=== PATIENT | male | born 1980 | race Caucasian/White ===

== ENCOUNTER 2020-03-12 08:49 | Emergency (ER) | payer OTHER, SELFPAY ==
[2020-03-12 09:12] VITALS: BP 133/70; BP 150/90; PULSE 117; PULSE 85; RESP 16; TEMP 37.1; O2SAT 100; BMI 26.5
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
--- NOTE | 2020-03-12 09:27 | PC.NURSE ---
SEEN BY DR KEATING. PLAN IS FOR CT ONLY. REMAINS WITH GOOD DISTAL NEUROS AFTER MD REMOVED C-COLLAR
[2020-03-12] MEDS: diazePAM 5 MG TABLET PO (09:46)
--- NOTE | 2020-03-12 10:52 | PC.NURSE ---
INTRODUCED SELF TO PT. AWAITING CT RESULTS, PT AWARE. RESTING COMFORTABLY IN STRETCHER AT THIS TIME, IN NAD.
[2020-03-12 11:32] VITALS: BP 113/65; PULSE 70; RESP 16; O2SAT 99
== END 2020-03-12 12:05 | disposition home or self-care (01) ==
PROVIDERS: Emergency Provider Emergency Medicine
DX: S13.4XXA Sprain of ligaments of cervical spine, initial encounter (principal); M54.2 Cervicalgia; M54.5 Low back pain; V43.52XA Car driver injured in collision with other type car in traffic accident, initial encounter; Y93.9 Activity, unspecified; Y92.410 Unspecified street and highway as the place of occurrence of the external cause; F17.200 Nicotine dependence, unspecified, uncomplicated; Z71.6 Tobacco abuse counseling; Z79.899 Other long term (current) drug therapy
CPT/HCPCS: 72125; 99284

== ENCOUNTER 2021-12-13 08:31 | Emergency (ER) | payer MEDICARE, MEDICAID, SELFPAY ==
[2021-12-13 09:09] VITALS: BP 138/89; PULSE 85; RESP 18; TEMP 36.6; O2SAT 98; BMI 26.5
[2021-12-13 09:35] LABS: MANUAL DIFF FLAG NO
[2021-12-13 09:36] LABS: Basophils Absolute Auto 0.1 X10*3/uL (0.0-0.2); Basophils Percent Auto 0.5 % (0-2); Eosinophils Percent Auto 0.2 % (0-4); Hematocrit 41.8 % (42.0-52.0); Hemoglobin 14.4 g/dl (14.0-18.0); Imm Gran Abs Auto 0.02 X10*3/uL (0.00-0.03); Imm Gran Pct Auto 0.2 % (0.0-0.4); Lymphocytes Absolute Auto 1.5 X10*3/uL (1.2-4.9); Lymphocytes Percent Auto 16.1 % (20-40); Mean Corpuscular HGB Conc 34.4 g/dl (31.0-36.0); Mean Corpuscular Hemoglobin 31.7 pg (27.0-33.0); Mean Corpuscular Volume 92.1 fL (80.0-98.0); Mean Platelet Volume 10.1 fL (9.4-12.4); Monocytes Absolute Auto 0.4 X10*3/uL (0.1-1.2); Monocytes Percent Auto 4.6 % (2-11); Neutrophils Absolute Auto 7.3 x10*3/uL (2.0-8.3); Neutrophils Percent Auto 78.4 % (45-73); Platelet Count 222 X10*3/uL (160-400); Red Blood Count 4.54 X10*6/uL (4.60-5.80); Red Cell Distribution Width 12.8 % (11.0-16.0); White Blood Count 9.3 X10*3/uL (4.8-10.8)
[2021-12-13 09:37] LABS: Appearance Urine CLEAR; Color Urine YELLOW; Glucose Urine UA NEG (NEG); Leukocyte Esterase Urine NEG (NEG); Nitrite Urine NEG (NEG); Specific Gravity - Urine <= 1.005 (1.005-1.025); Urine Blood NEG (NEG); Urine Ketones NEG (NEG); Urine Protein NEG (NEG-TRACE)
[2021-12-13 09:42] LABS: Prothrombin Time 11.2 SEC (10.0-13.1)
[2021-12-13 09:58] LABS: Anion Gap 12 (12-20); Blood Urea Nitrogen 13 mg/dL (9-16); Calcium 9.1 mg/dL (8.4-10.2); Carbon Dioxide 25 mmol/L (22-29); Chloride 102 mmol/L (96-108); Creatinine Clr Calc Pharmacy 116.7; Estimated Glomerular Filt Rate > 60; Glucose Random 105 mg/dL (60-115); Sodium 135 mmol/L (135-145)
== END 2021-12-13 19:26 | disposition left against medical advice (07) ==
PROVIDERS: Emergency Provider Emergency Medicine
DX: K92.1 Melena (principal); R31.9 Hematuria, unspecified; Z79.899 Other long term (current) drug therapy
CPT/HCPCS: 36415; 80048; 81003; 85025; 85610; 85730; 99282; 99283

== ENCOUNTER 2023-08-08 11:20 | Outpatient (AMB) | payer OTHER, SELFPAY ==
[2023-08-08 11:19] VITALS: BP 124/90; PULSE 87; O2SAT 98; BMI 29.0
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
[2023-08-08 11:37] VITALS: BP 108/60
== END 2023-08-08 12:01 | disposition home or self-care (01) ==
PROVIDERS: PCP Internal Medicine; Visit Provider Internal Medicine
DX: Z00.00 Encounter for general adult medical examination without abnormal findings (principal); L72.9 Follicular cyst of the skin and subcutaneous tissue, unspecified; M67.442 Ganglion, left hand; B35.6 Tinea cruris; Z72.0 Tobacco use
CPT/HCPCS: 99499

== ENCOUNTER 2023-09-02 10:23 | Outpatient (AMB) | payer MEDICARE, OTHER, SELFPAY ==
--- NOTE | 2023-09-02 10:44 | A.OFFVIS_ITS ---
Intake Vital Signs 3 09/02/23 10:56 Height 5 ft 10 in Weight 201 lb BMI 28.8 BP 128/85 Blood Pressure Location Lt brachial Position Sitting Pulse 75 Intake Visit Reasons: Follicular cyst of skin Intake Note: Patient is seen in office for evaluation and treatment of a right scrotal mass. Pt c/o: right groin lump had been I&D 2 yrs ago and came back has a hand cyst 2 yrs has increase in size, denies pain Occupational Health Technician Required: No Accompanied by: Family/Other Allergies No Known Allergies Allergy (Verified 09/02/23 10:51) Medication List - Last Reconciled 09/02/23 by Jorge L Oquendo MD No Known Home Meds HPI HPI Comments 2 History of Present Illness0 Details 43-year-old male patient presenting for evaluation of a scrotal cyst noted on the right scrotum. He has a prior history of multiple scrotal cyst removed by Dr. Luque all of which were benign. He currently denies any symptoms associated with the cyst and denies any previous history of infection. He also complains of a left ganglion cyst located in the thenar eminence. 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 He was interested in having this removed. [facility] Medical History Neck pain Surgical History Hx of appendectomy H/O bilateral inguinal hernia repair Family History Father Myocardial infarct Social History Housing: Apartment Alcohol intake: current Alcohol intake frequency: a few times a week Comment: once a week 3 beers Patient Tobacco Use Status: Current everyday Tobacco user Cigarette Packs Per Day: 1 Years Smoked: started 18 years old 8 cigarettes a day. service: No Current occupational status: employed Cognitive needs: No Hearing needs: No Vision needs: No Review of Systems Const All systems reviewed & are unremarkable except as noted in HPI and below Physical Exam Vital Signs: Last Vital Signs Pulse 75 09/02/23 10:56 BP 128/85 09/02/23 10:56 BMI result Body Mass Index 28.8 Const General: cooperative and no acute distress Nutritional Appearance: well nourished Orientation/consciousness: patient oriented x3 Limitations: no limitations HEENT Head: Yes normocephalic and Yes atraumatic Ears: hearing grossly normal bilaterally Resp Effort & Inspection: normal respiratory effort, no audible wheezes, no cough and no respiratory distress Cardio Jugular venous distension: no JVD GI Inspection: Yes normal to inspection Other: 1 cm scrotal cyst located in the upper right scrotal sac. Several small lesions are noted below this in the midline and left side. All appear benign with no evidence of skin ulceration, erythema, or tenderness to palpation. Male genitals images: 2 1. Largest cyst right scrotum, 1 cm diameter. Skin Other: Warm, dry, no rash Neuro General: patient oriented x3 Extrem General: Yes no clubbing, cyanosis or edema Hand/finger images: 2 1. Site of palpable ganglion at thenar eminence left hand Assessment & Plan Assessment & Plan (1) Ganglion cyst of tendon sheath of left hand: Comment: Left hand cyst Code(s): M67.442 - Ganglion, left hand Plan: Large ganglion cyst at the left hand thenar eminence. Cyst is located on the palmar surface and would be best treated by a hand specialist. I will refer to Dr. Alfonso for further evaluation. (2) Scrotal cyst: Comment: Right scrotal mass Code(s): L72.9 - Follicular cyst of the skin and subcutaneous tissue, unspecified Plan: Patient has multiple small scrotal cysts the largest measuring approximately 1 cm on the right side. He is previously undergone excision of 9 scrotal cyst which were benign. Reviewed the procedure, risks and alternatives for excision of this scrotal cyst. He is declined excision at this time will call should they become more symptomatic. Orders: Referrals 2 Hand Surgery Referral Jorge L Oquendo MD M67.442 - Ganglion, left hand Medications: Discontinued 2 diazepam (Valium) Discontinued Reason: Patient Completed Course 5 mg PO TID PRN 10 tabs 0RF muscle spasm VY Brown clotrimazole 1% Discontinued Reason: Patient Refused 1 appl topical BID 45 grams 1RF 4 weeks VY Brown B35.6 - Tinea cruris miconazole nitrate 2% (Zeasorb AF) Discontinued Reason: Patient Completed Course 1 appl topical DAILY 85 grams 1RF Fariba Adler, RMA B35.6 - Tinea cruris Coding Level of Care Code New Pt Level 4 (00290) Diagnoses Ganglion cyst of tendon sheath of left hand M67.442 Scrotal cyst L72.9
[2023-09-02 10:56] VITALS: BP 128/85; PULSE 75; BMI 28.8
== END 2023-09-02 11:05 | disposition home or self-care (01) ==
PROVIDERS: PCP Internal Medicine; Referring Provider Internal Medicine; Visit Provider Surgery
DX: M67.442 Ganglion, left hand (principal); L72.9 Follicular cyst of the skin and subcutaneous tissue, unspecified
CPT/HCPCS: 99204

== ENCOUNTER → 2023-09-02 10:23 | Outpatient (BNVA) | payer OTHER, SELFPAY | PROVIDERS: PCP Internal Medicine; Referring Provider Internal Medicine; Visit Provider Surgery ==

== ENCOUNTER 2023-09-21 10:19 | Outpatient (REF) | payer OTHER, SELFPAY | END 2023-09-21 10:20 | disposition home or self-care (01) | LOC: HO.HOSX 10:19 | PROVIDERS: Visit Provider Physician Assistant | DX: Z13.89 Encounter for screening for other disorder (principal) ==

== ENCOUNTER 2023-11-04 07:43 | Outpatient (REF) | payer OTHER, SELFPAY ==
--- NOTE | ~2023-11-04 | XR_ITS ---
EXAMINATION: XR HAND, LEFT CLINICAL INFORMATION: Pain in left hand. COMPARISON: None available. TECHNIQUE: PA, lateral, and oblique views of the left hand. FINDINGS: Radiopaque marker placed by technologist to indicate the area of concern as indicated by the patient between the first and second digits. Prominence of the soft tissues between the first and second metacarpal. Bone mineralization is normal. Moderate degenerative changes with hypertrophic change most notable in the fifth digit DIP joint. Mild degenerative changes with narrowing and hypertrophic change of the first carpometacarpal and metacarpophalangeal joints. XR/XR hand LT min 3V IMPRESSION: 1. Prominence of the soft tissues between the first and second metacarpal. Correlation with clinical exam recommended. 2. Moderate degenerative changes most notable in the fifth digit DIP joint. 3. Recommend follow-up imaging in 10-14 days if fracture is suspected.
== END 2023-11-04 07:44 | disposition home or self-care (01) ==
LOC: HO.HOSX 07:43
PROVIDERS: Visit Provider Physician Assistant
DX: M79.642 Pain in left hand (principal)
CPT/HCPCS: 73130

== ENCOUNTER 2023-11-04 11:37 | Outpatient (AMB) | payer OTHER, SELFPAY ==
--- NOTE | 2023-11-04 11:38 | MHC.OFFVIS ---
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 He states the mass has gotten smaller within the last month.He was seen by a general surgeon here at [facility] and was referred to orthopedics. Lump is located on the palmar surface left hand thenar eminence. Pt denies any pain. 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 He reports he noticed a noticed a lump on his hand about a year ago which has gotten smaller in size within the last month. He was seen by a general surgeon at [facility] where he was referred to our office. His lump is located at the palmar aspect of thenar eminence of left hand. He denies any pain. He has not had any treatment in the past. 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 [facility] Medical History Neck pain Surgical History Hx of appendectomy H/O bilateral inguinal hernia repair Family History Father Myocardial infarct Social History Housing: Apartment Alcohol intake: current Alcohol intake frequency: a few times a week Comment: once a week 3 beers Patient Tobacco Use Status: Current everyday Tobacco user Cigarette Packs Per Day: 1 Years Smoked: started 18 years old 8 cigarettes a day. service: No Current occupational status: employed Cognitive needs: No Hearing needs: No Vision needs: No Review of Systems Const All systems reviewed & are unremarkable except as noted in HPI and below Physical Exam Const General: cooperative, healthy appearing, comfortable, no acute distress, well developed and alert Orientation/consciousness: patient oriented x3 HEENT Head: Yes normal to inspection, Yes normocephalic and Yes atraumatic Eyes General: appearance normal, both eyes and all related structures Resp Effort & Inspection: normal respiratory effort and able to speak in complete sentences Cardio Rate: regular rate Peripheral pulses: Peripheral pulses 2+ throughout GI Palpation (GI): Soft to palpation Skin Lesions: no lesions Rashes: no rashes Neuro General: patient oriented x3 Extrem Other: Left hand: Normal to inspection. He does have a marble sized cystic structure between the space of index finger and thumb. It is mobile. There is no tenderness to palpation. NVI. Results Reviewed Results Reviewed: Xrays were obtained in the office today and personally reviewed by me of the left hand negative for bony abnormalities. Assessment & Plan Assessment & Plan (1) Mass of skin of left thumb: Code(s): R22.32 - Localized swelling, mass and lump, left upper limb Category: Medical Plan At this time with we ordered an MRI of the left hand with and without contrast to further evaluate the structures. He is content with the plan and will see me back once the scan is complete. Orders: Orders XR hand LT min 3V Today M79.642 - Pain in left hand MR hand LT wo/w con Today D17.9 - Benign lipomatous neoplasm, unspecified Patient Instructions: Scribed for Joe Garrido PA-C, by Damion Rodas pesticide use medical coordinator, on 11/04/2023 at 11:30 AM EST.? I, Joe Garrido PA-C, have personally reviewed and agree with the information entered by the scribe. Coding Level of Care Code New Pt Level 3 (61919) Diagnoses Mass of skin of left thumb R22.32
== END 2023-11-04 12:05 | disposition home or self-care (01) ==
PROVIDERS: PCP Internal Medicine; Visit Provider Physician Assistant
DX: R22.32 Localized swelling, mass and lump, left upper limb (principal)
CPT/HCPCS: 99203

== ENCOUNTER 2024-12-17 08:49 | Emergency (ER) | payer SELFPAY ==
--- NOTE | ~2024-12-17 | XR_ITS ---
EXAMINATION: XR WRIST 3 OR MORE VIEWS LEFT HISTORY: swelling and pain dorsal wrist COMPARISON: There are no prior studies available for comparison. FINDINGS: Four views of the left wrist, including a scaphoid view are submitted. Osseous mineralization is normal. There is no fracture or dislocation. The joint spaces are preserved. There is dorsal soft tissue swelling. XR/XR wrist LT min 3V IMPRESSION: Dorsal soft tissue swelling. No osseous abnormality is identified. Electronically signed by: Zac Gutierrez MD 12/17/2024 09:56 AM EDT
[2024-12-17 08:51] VITALS: BP 141/78; PULSE 75; RESP 16; TEMP 36.6; O2SAT 98; BMI 26.1
--- NOTE | 2024-12-17 09:27 | ED_ITS ---
HPI - Extremity Problem General Chief complaint: Extremity Problem Stated complaint: Left wrist swollen Time Seen by Provider: 12/17/24 09:07 Source: patient Mode of arrival: ambulatory Limitations: no limitations History of Present Illness ED Provider: Corina Rinaldi PA-C HPI Narrative: Patient reports to the emergency department today for evaluation of soft tissue mass behind his left dorsal wrist. He states he just woke up with it 1 day a week ago. It does hurt when he moves his wrist around he noticed a little bit of swelling into his hand but no skin changes. Denies any trauma or this occurring before in the past. He is right-hand dominant. He is denying any paresthesias or weakness. He reports no intervention at home. He isn't feel it gets worse with dependent position. He denies noticing any other swelling on the rest of his body. No fevers no chills. In chart review underneath patient has active problems it looks like he has a diagnosis of ganglion cyst of the tendon sheath of left hand however he declines knowledge of this. MD Complaint: extremity swelling Related Data Previous Rx's ?Medication ?Instructions ?Recorded meloxicam 15 mg tablet 15 mg PO DAILY #14 tabs 11/28 06/23 Allergies Allergy/AdvReac Type Severity Reaction Status Date / Time No Known Allergies Allergy Verified 12/17/24 08:52 Review of Systems Review of Systems: Yes all other systems are reviewed and are negative PMFSH Past Medical History Attestation statement: The following information was validated with the patient. Source: old records reviewed and nursing notes reviewed Medical History Neck pain Surgical History Hx of appendectomy H/O bilateral inguinal hernia repair Family History Family History Father Myocardial infarct Social History Social History Housing: Apartment Alcohol intake: current Alcohol intake frequency: a few times a week Comment: once a week 3 beers Patient Tobacco Use Status: Current everyday Tobacco user Cigarette Packs Per Day: 1 Years Smoked: started 18 years old 8 cigarettes a day. Advance Directives: No Advance Directives Information Provided: Yes service: No Current occupational status: employed Cognitive needs: No Hearing needs: No Vision needs: No Physical Exam Exam: Exam: General: Appears in no acute distress, appears well nourished body habitus is normal, appears stated age. No septic or ill-appearing. Vitals reviewed normal, PMH/Social and Surgical hx reviewed including allergies and current medications. - reviewed for prior visits here and not read as it does not pertain to CC. Head: Normocephalic, no obvious trauma or skin lesions noted. Eyes: EOMI ENMT: moist oral mucosa Neck: trachea midline Cardiovascular: peripheral perfusion normal, Regular heart rate regular rhythm cap refill less 3 seconds distal pulses 2+ extremities are warm and well- perfused Respiratory: no respiratory distress Abdomen: nondistended Extremities: warm, superficial soft tissue mass that is mobile in the dorsal aspect of the left wrist that is approximately 2-1/2 cm in size rounded, that is skin colored with no erythema slight nonpitting edema dorsally to the distal portion of the 2nd through 5th MCPs, patient is fully intact no bony tenderness patient is able to perform finger opposition make the okay sign the peace sign in a fully close fist check weigher strength is 4+ throughout he is only mildly tender over this dorsal soft tissue mass but otherwise no other tenderness noted wrist extension and flexion is limited only wrist extension causes pain, no erythema cuts abrasions or other skin lesions noted Psych: Cooperative Neuro: Alert and oriented. Neurovascularly intact Vital Signs: Vital Signs: Last Vital Signs Temp 98 F 12/17/24 10:32 Pulse 75 12/17/24 10:32 Resp 16 12/17/24 10:32 BP 141/78 H 12/17/24 10:32 Pulse Ox 98 12/17/24 08:51 O2 Del Method Room Air 12/17/24 10:32 BMI result Body Mass Index 26.1 Medical Decision Making Medical Decision Making MDM Narrative: Well-appearing 44-year-old male presenting to emergency department today for evaluation of left wrist swelling. History and physical as above. Upon arrival to ED patient is afebrile with reassuring vital signs. On physical exam he does have a dorsal soft tissue mass of his left wrist she looks like the appearance of a ruptured ganglion cyst but certainly no infection seems to be present. X- rays were obtained to further evaluate as he did have some decrease in range of motion. X-rays do not show any evidence of a bone dislocation or a fracture. Mass is mobile not likely cancerous. In chart review it does look like he has a prior diagnosis of a ganglion cyst in this area but patient can not recall. Empiric incision and drainage not warranted today. Discussed activity as tolerated with rice method and have given meloxicam as a long-acting anti- inflammatory for his pain relief. We did discuss that following up with Orthopedics would be the next step in management of this. I have advised against him popping it and then self as he wanted to do this. We discussed the risks of infection as well as worsening condition and reasons to seek medical attention again both urine an outpatient. Patient demonstrated verbal understanding of the plan and agreed he was discharged home stable Differential Diagnosis Differential Diagnoses: The differential diagnosis associated with the presentation includes See MDM Admission/Observation Consideration of admission/observation: Escalation of care including admission/observation considered Patient would have been admitted to the hospital had his work up had any findings where hospital admission was appropriate and his clinical presentation warranted hospital admission. Independent Interpretation I performed an independent interpretation of an: Plain X-Ray Interpretation: No fracture or dislocation Radiology Impression Discussion of test interpretation with radiology: I have reviewed the radiologist's reading. Discharge Plan Discharge Clinical Impression: Mass of left wrist Patient Disposition: Home, Self-Care Instructions: Ganglion Cyst (ED), Soft Tissue Mass (ED) Additional Instructions: You were seen in the emergency department today due to a mass behind her left posterior wrist. We discussed the potential possibilities of a ruptured ganglion cyst versus lipoma versus bony abnormality. You had x-rays done that did no show any bony abnormality fracture or dislocation. On imaging the soft tissue looks to be dorsal only. It does not appear to be infected and there is no evidence of neurovascular compromise. Is recommended that you follow up outpatient with Orthopedics for further evaluation. In the interim we will address her discomfort with meloxicam which is long-acting anti-inflammatory as well as with an Scar wrap. Do not wear the Scar wrap to bed on wrap if her fingers feel tingly. If you notice any skin changes increase in pain or size of this please have it re-evaluated immediately. Activity as tolerated. When I reviewed your chart underneath her active problem it does look like you have an identified ganglion cysts of your left hand before in the past, this has likely ruptured. Prescriptions: New meloxicam 15 mg tablet 15 mg PO DAILY Qty: 14 0RF Referrals: [facility] Orthopedic Surgeons [Provider Group] Referral Note: Dorsal soft tissue mass of left wrist questionable ruptured ganglion cyst Interventions: ED Discharge Assessment Last Done: 12/17/24 10:32 Discharge Date/Time: 12/17/24 10:33 Print Language: Sudanese
--- OUTSIDE RECORDS SUMMARY | 2024-12-17 10:04 | XMS_ITS | Clinical Summary ---
Author Organization [employer] Address [address] [place] [address] Care Team Providers Care Data Warehousing Specialist Name Role Phone Unavailable Primary Care Provider Unavailabl e Social History Tobacco Use Types Packs/Day Years Used Date Smoking Tobacco: Never Assessed Sex and Gender Information Value Date Recorded Sex Assigned at Male 03/29/2022 10:18 AM EDT Legal Sex Male 10:18 AM EDT Gender Identity Male 03/29/2022 10:18 AM EDT Sexual Orientation Straight 03/29/2022 10 :18 AM EDT Last Filed Vital Signs Vital Sign Reading Time Taken Comments Blood Pressure 121/82 12/15/2021 12:07 AM EDT Pulse 74 12/15/2021 12:07 AM EDT Temperature - - Respiratory Rate - - Oxygen Saturation - - Inhaled Oxygen Concentration - - Weight 78.5 kg (173 lb) 12/15/2021 12:07 AM EDT Height 180.3 cm (5' 11 ) 12/15/2021 12:07 AM EDT Body Mass Index 24.13 12/15/2021 12:07 AM EDT Plan of Treatment Health Maintenance Due Date Last Done Comments Depression Screening 1980 SDOH Screening 1980 Disability Screening 1980 Alcohol/Substance Use Screening 1992 Tobacco Screening 1992 Family Planning (PISQ) 02/02/1995 HPV Vaccines (1 - Male 3-dos e series) 02/02/1995 Hepatitis B Vaccines (1 of 3 - 19+ 3-dose series) 02/02/1999 COVID-19 Vaccine (4 - 2023-2 5 season) 2024 05/15/2022, 06/24/2021, 12/28/2020 Influenza Vaccine (#1) 2025 Lipid Panel 12/15/2026 12/15/2021 DTaP/Tdap/Td Vaccines (2 - T d or Tdap) 08/13/2027 08/12/2017 Zoster Vaccines (1 of 2) 02/02/2030 RSV Patients and Patients Aged 60 years or older (1 - 1-dose 75+ series) 02/02/2055 HIV Screening Completed 12/15/2021 Hepatitis C Screening Completed 12/15/2021 HIB Vaccines Aged Out No longer eligi ble based on patient's age to complete this topic Hepatitis A Vaccines Aged Out No long er eligible based on patient's age to complete this topic IPV Vaccines Aged Out No longer eligi ble based on patient's age to complete this topic Meningococcal B Vaccine Aged Out No l onger eligible based on patient's age to complete this topic Meningococcal Vaccine Aged Out No manfred mila eligible based on patient's age to complete this topic Pneumococcal Vaccine: Pediatrics (0 to 5 Years) and At-Risk Patients (6 to 49) Years Aged Out No longer eligible b ased on patient's age to complete this topic RSV under 20 months Aged Out No longe r eligible based on patient's age to complete this topic Rotavirus Vaccines Aged Out No longer eligible based on patient's age to complete this topic Procedures Procedure Name Priority Date/Time Associated Diagnosis Comments ZZZ HISTORICAL HEPATITIS C AB W/REFL TO HCV RNA, QN, PCR Routine 12/15/2021 11:19 AM EDT HIV 1/2 ANTIGEN/ANTIBODY, FOURTH GENERATION W/RFL Routine 12/15/2021 11:19 AM EDT LIPID PANEL, STANDARD Routine 12/15/2021 11:19 AM EDT from Last 3 Months or Most Recently Relevant to Health Maintenance Results * HEPATITIS C AB W/REFL TO HCV RNA, QN, PCR (12/15/2021 11:19 AM EDT) HEPATITIS C ANTIBODY NON-REACT DAPHNE NON-REACT DAPHNE [facility] INDEX 0.02 <1.00 [facility] Comment: HCV antibody was non-reactive. There is no laboratory evidence of HCV infection. In most cases, no further action is required. However, if recent HCV exposure is suspected, a test for HCV RNA (test code 05838) is suggested. For additional information please refer to [email or web address]/faq/RMV56v7 (This link is being provided for informational/ educational purposes only.) 12/15/2021 11:1 9 AM EDT Jennifer Roca FLOORING PROFESSIONAL HISTORICAL/NON ORDERABLE LABS Final Result Performing Organization Address [facility] de Phone Number [facility] [address] [place] [address], * HIV 1/2 ANTIGEN/ANTIBODY,FOURTH GENERATION W/RFL (12/15/2021 11:19 AM EDT) Pathologist [facility] HIV-1/2 ANTIGEN AND ANTIBODIES, 4TH GENERATION W/ REFLEX NON-REACT DAPHNE NON-REACT DAPHNE [facility] Comment: HIV-1 antigen and HIV-1/HIV-2 antibodies were not detected. There is no laboratory evidence of HIV infection. PLEASE NOTE: This information has been disclosed to you from records whose confidentiality may be protected by state law. If your state requires such protection, then the state law prohibits you from making any further disclosure of the information without the specific written consent of the person to whom it pertains, or as otherwise permitted by law. A general authorization for the release of medical or other information is NOT sufficient for this purpose. For additional information please refer to [email or web address]/faq/ECB500 (This link is being provided for informational/ educational purposes only.) The performance of this assay has not been clinically validated in patients less than 2 years old. 12/15/2021 11:1 9 AM EDT Jennifer Gonzalezlily FLOORING PROFESSIONAL LAB BLOOD ORDERABLES Final Res ult Performing Organization Address [facility] de Phone Number [facility] [address] [place] [address], * LIPID PANEL, STANDARD (12/15/2021 11:19 AM EDT) Chol/HDLC Ratio 2.4 <5.0 (calc) [facility] Cholesterol, Total 174 <200 mg/dL [facility] HDL Cholesterol 73 > OR = 40 mg/dL [facility] LDL Cholesterol 85 mg/dL (calc) [facility] Comment: Reference range: <100 Desirable range <100 mg/dL for primary prevention; <70 mg/dL for patients with CHD or diabetic patients with > or = 2 CHD risk factors. LDL-C is now calculated using the Robert calculation, which is a validated novel method providing better accuracy than the Friedewald equation in the estimation of LDL-C. Marcos GASPAR et al. JOSHUA. 2013;310(19): 1736-5679 (http://education.EyeSpot/faq/MOV914) Non-HDL Cholesterol 101 <130 mg/dL (calc) [facility] Comment: For patients with diabetes plus 1 major ASCVD risk factor, treating to a non-HDL-C goal of <100 mg/dL (LDL-C of <70 mg/dL) is considered a therapeutic option. Triglycerides 69 <150 mg/dL [facility] 12/15/2021 11:1 9 AM EDT us Jennifer Roca NP LAB BLOOD ORDERABLES Final Res ult [facility] [address] from Last 3 Months or Most Recently Relevant to Health Maintenance Insurance [facility] STANDARD
[2024-12-17 10:32] VITALS: BP 141/78; PULSE 75; RESP 16; TEMP 36.6
== END 2024-12-17 10:33 | disposition home or self-care (01) ==
PROVIDERS: Emergency Provider Emergency Medicine
DX: R22.32 Localized swelling, mass and lump, left upper limb (principal)
CPT/HCPCS: 73110; 99282; 99283

== ENCOUNTER → 2024-12-17 09:28 | Outpatient (BNV) | payer SELFPAY | PROVIDERS: Emergency Provider Emergency Medicine; Visit Provider Radiology Diagnostic Radiology | DX: R22.32 Localized swelling, mass and lump, left upper limb (principal) | CPT/HCPCS: 73110 ==

== ENCOUNTER 2025-01-01 09:48 | Outpatient (AMB) | payer OTHER, SELFPAY ==
[2025-01-01 09:50] VITALS: BMI 26.1
--- NOTE | 2025-01-01 09:50 | A.OFFVIS_ITS ---
Vital Signs 01/01/25 09:50 Height 5 ft 10 in Weight 182 lb BMI 26.1 Intake Visit Reasons: ED: LT wrist swelling/possibility of ganglion cyst Intake Note: Justice is a 44 year old - hand dominant male who presents today for further evaluation of swelling of the left wrist. Patient presented to [facility] ED on 12/17/24 reporting a week prior he woke up with a mass on the dorsal aspect of the wrist that was now causing pain when moving the wrist around. Patient also reported some swelling that was spreading to the hand. He was prescribed meloxicam and given an charly wrap with instructions to not wear the charly wrap to bed. Patient was previously seen on 09/02/23 where he was evaluated for a lump between his left index finger and thumb. An MRI was ordered however the patient no show the appointment. Today, patient reports pain on the dorsal aspect of the hand. Has taken the meloxicam prescribed and Tylenol, with no relief. Denies any numbness, tingling, or finger locking & catching. Allergies No Known Allergies Allergy (Verified 01/01/25 09:55) HPI HPI ED: LT wrist swelling/possibility of ganglion cyst: Details: Justice is a 44 year old - hand dominant male who presents today for further evaluation of swelling of the left wrist. Patient presented to [facility] ED on 12/17/24 reporting a week prior he woke up with a mass on the dorsal aspect of the wrist that was now causing pain when moving the wrist around. Patient also reported some swelling that was spreading to the hand. He was prescribed meloxicam and given an charly wrap with instructions to not wear the charly wrap to bed. Patient was previously seen on 09/02/23 where he was evaluated for a lump between his left index finger and thumb. An MRI was ordered however the patient no show the appointment. Today, patient reports pain on the dorsal aspect of the hand. Has taken the meloxicam prescribed and Tylenol, with no relief. Denies any numbness, tingling, or finger locking & catching. [facility] Medical History Neck pain Surgical History Hx of appendectomy H/O bilateral inguinal hernia repair Family History Father Myocardial infarct Social History Housing: Apartment Alcohol intake: current Alcohol intake frequency: a few times a week Comment: once a week 3 beers Patient Tobacco Use Status: Current everyday Tobacco user Cigarette Packs Per Day: 1 Years Smoked: started 18 years old 8 cigarettes a day. service: No Current occupational status: employed Cognitive needs: No Hearing needs: No Vision needs: No Review of Systems Const All systems reviewed & are unremarkable except as noted in HPI and below Physical Exam Vital Signs: BMI result Body Mass Index 26.1 Extrem Other: Patient is alert, oriented, and in no acute distress. Neuro: Normal sensation of the tips of all digits of the left hand at this time Vascular: Cap refill brisk Pain: Minimal tenderness to palpation about mass of dorsal left wrist Range of motion of the left wrist and hand is painless ROM: Patient is able to make a closed fist and extend all digits of the left hand fully Range of motion of the left wrist full and intact with pronation supination flexion and extension being full Skin: No lacerations or abrasions. General: There is an approximately 4-5 cm in diameter fluctuant, mobile mass noted of the dorsal aspect of the left wrist No ecchymosis, erythema, or evidence of infection. Psych: Appears grossly normal Affect normal Attitude cooperative Assessment & Plan Assessment & Plan (1) Ganglion cyst of dorsum of left wrist: Code(s): M67.432 - Ganglion, left wrist Category: Medical Plan 1. Ganglion cyst of the left wrist Patient is educated about this condition Patient is educated about the treatment options available At this time, patient states he is interested in surgical intervention, however he is unable to do so at this time due to work circumstances Patient states that in approximately January, he will be in a better place to be able to explore operative intervention Patient is booked an appointment for late January or early February to discuss left wrist ganglion cyst excision Patient understands this is amenable to this plan Coding Level of Care Code New Pt Level 3 (52966) Diagnoses Ganglion cyst of dorsum of left wrist M67.432
--- OUTSIDE RECORDS SUMMARY | 2025-01-01 10:14 | XMS_ITS | Clinical Summary ---
Author Organization [employer] Address [address] [place] [address] Care Team Providers Care Covered Button Maker Name Role Phone Unavailable Primary Care Provider [...] HEPATITIS C ANTIBODY NON-REACT DAPHNE NON-REACT DAPHNE [facility] INDEX 0.02 <1.00 [facility] Comment: HCV antibody was non-reactive. There is no laboratory evidence of HCV infection. In most cases, no further action is required. However, if recent HCV exposure is suspected, a test for HCV RNA (test code 55501) is suggested. For additional information please refer to [email or web address]/faq/PMD47c7 (This link is being provided for informational/ educational purposes only.) 12/15/2021 11:1 9 AM EDT Jennifer Roca CRAB PICKER HISTORICAL/NON ORDERABLE LABS Final Result Performing Organization Address [facility] de Phone Number [facility] [address] [place] [address], * HIV 1/2 ANTIGEN/ANTIBODY,FOURTH GENERATION W/RFL (12/15/2021 11:19 AM EDT) Pathologist [facility] HIV-1/2 ANTIGEN AND ANTIBODIES, 4TH GENERATION W/ REFLEX NON-REACT DAPHNE NON-REACT DAPHNE [facility] Comment: HIV-1 antigen and HIV-1/HIV-2 [...] purpose. For additional information please refer to http://[email or web address]/faq/MTS510 (This link is being provided for informational/ educational purposes only.) The performance of this assay has not been clinically validated in patients less than 2 years old. 12/15/2021 11:1 9 AM EDT Jennifer Gonzalezlily CRAB P[employer]ER LAB BLOOD ORDERABLES Final Res ult Performing Organization Address [facility] de Phone Number [facility] [address] [place] [address], * LIPID PANEL, STANDARD (12/15/2021 11:19 AM EDT) Chol/HDLC Ratio 2.4 <5.0 (calc) [facility] Cholesterol, Total 174 <200 mg/dL [...] LDL-C. Marcos GASPAR et al. JOSHUA. 2013;310(19): 1359-8312 (http://education.3FLOZ/faq/ADH462) Non-HDL Cholesterol 101 <130 mg/dL (calc) [facility] Comment: For patients with diabetes plus 1 major ASCVD risk factor, treating to a non-HDL-C goal of <100 mg/dL (LDL-C of <70 mg/dL) is considered a therapeutic option. Triglycerides 69 <150 mg/dL [facility] 12/15/2021 11:1 9 AM EDT us Jennifer Roca NP LAB BLOOD ORDERABLES Final Res ult [facility] [address] from Last 3 Months or Most Recently Relevant to Health Maintenance Insurance [facility] STANDARD
== END 2025-01-01 10:19 | disposition home or self-care (01) ==
LOC: HO.HOS 09:49
DX: M67.432 Ganglion, left wrist (principal)
CPT/HCPCS: 99214

== ENCOUNTER 2025-03-01 13:58 | Outpatient (AMB) | payer SELFPAY ==
--- OUTSIDE RECORDS SUMMARY | 2025-03-01 14:11 | XMS_ITS | Clinical Summary ---
Author Organization [employer] Address [address] [facility] [address] [place] [address] Care Team Providers Care Mail Sorter Name Role Phone Unavailable Primary Care Provider [...] Health Maintenance Due Date Last Done Comments CT Colonography 1980 Colonoscopy 1980 Colorectal Cancer Screening 1980 Depression Screening 1980 FIT DNA/Cologuard 1980 FIT 1980 FOBT 1980 SDOH Screening 1980 Sigmoidoscopy 1980 Disability Screening 1980 Alcohol/Substance Use Screening 1992 Tobacco Screening 1992 Family Planning (PISQ) 02/02/1995 HPV Vaccines (1 - Male 3-dos e series) 02/02/1995 Hepatitis B Vaccines (1 of 3 - 19+ 3-dose series) 02/02/1999 COVID-19 Vaccine (4 - 2025-2 6 season) 2025 05/15/2022, 06/24/2021, 12/28/2020 Influenza Vaccine (#1) 2025 [...] HEPATITIS C ANTIBODY NON-REACT DAPHNE NON-REACT DAPHNE [facility] INDEX 0.02 <1.00 [facility] Comment: HCV antibody was non-reactive. There is no laboratory evidence of HCV infection. In most cases, no further action is required. However, if recent HCV exposure is suspected, a test for HCV RNA (test code 89948) is suggested. For additional information please refer to http://VIDDIX.[employer]/faq/GMA17h6 (This link is being provided for informational/ educational purposes only.) 12/15/2021 11:1 9 AM EDT Jennifer Roca INSTRUCTIONAL SERVICES LIBRARIAN HISTORICAL/NON ORDERABLE LABS Final Result Performing Organization Address [facility] de Phone Number [facility] [address] [place] [address], * HIV 1/2 ANTIGEN/ANTIBODY,FOURTH GENERATION W/RFL (12/15/2021 11:19 AM EDT) HIV-1/2 ANTIGEN AND ANTIBODIES, 4TH GENERATION W/ REFLEX NON-REACT DAPHNE NON-REACT DAPHNE [facility] Comment: HIV-1 antigen and HIV-1/HIV-2 [...] purpose. For additional information please refer to http://VIDDIX.[employer]/faq/OJG206 (This link is being provided for informational/ educational purposes only.) The performance of this assay has not been clinically validated in patients less than 2 years old. 12/15/2021 11:1 9 AM EDT Jennifer Gonzalezlily SOTELO LAB BLOOD ORDERABLES Final Res ult Performing Organization Address [facility] Co de Phone Number [facility] [address] [place] [address], * LIPID PANEL, STANDARD (12/15/2021 11:19 AM EDT) Chol/HDLC Ratio 2.4 <5.0 (calc) [facility] Cholesterol, Total 174 <200 mg/dL [facility] HDL Cholesterol 73 > OR = 40 mg/dL [facility] LDL Cholesterol 85 mg/dL (calc) [facility] Comment: Reference range: <100 Desirable range <100 mg/dL for primary prevention; <70 mg/dL for patients with CHD or diabetic patients with > or = 2 CHD risk factors. LDL-C is now calculated using the Robert calculation, which is a validated novel method providing better accuracy than the Friedewald equation in the estimation of LDL-C. Marcos SS et al. JOSHUA. 2013;310(19): 7846-1398 (http://education.[employer]/faq/JIU920) Non-HDL Cholesterol 101 <130 mg/dL (calc) [facility] Comment: For patients with diabetes plus 1 major ASCVD risk factor, treating to a non-HDL-C goal of <100 mg/dL (LDL-C of <70 mg/dL) is considered a therapeutic option. Triglycerides 69 <150 mg/dL [facility] 12/15/2021 11:1 9 AM EDT us Jennifer Roca NP LAB BLOOD ORDERABLES Final Res ult [facility] [address] from Last 3 Months or Most Recently Relevant to Health Maintenance Insurance * Guarantor: Justice Conn Account Type Relation to Patient Date of Phone Billing Address Personal/Family Self [address] [place] [address] [facility] STANDARD
--- NOTE | 2025-03-01 14:16 | A.OFFVIS_ITS ---
Vital Signs 03/01/25 14:36 Height 5 ft 10 in Weight 182 lb BMI 26.1 Intake Visit Reasons: OV-Discuss L ganglion excision Intake Note: Justice is a 45 year old right hand dominant male who presents today for follow up of Left Wrist Ganglion Cyst. At his last visit surgical intervention was discussed but patient was unable to schedule surgery due to insurance issues and wished to set up surgery until late January. Patient is now seeking ganglion cyst excision. Allergies No Known Allergies Allergy (Verified 03/01/25 14:35) HPI HPI OV-Discuss L ganglion excision: Details: Justice is a 45 year old right hand dominant male who presents today for follow up of Left Wrist Ganglion Cyst. At his last visit surgical intervention was discussed but patient was unable to schedule surgery due to insurance issues and wished to set up surgery until late January. Patient is now seeking ganglion cyst excision. Patient does state that he felt that he was having surgery today. [facility] Medical History Neck pain Surgical History Hx of appendectomy H/O bilateral inguinal hernia repair Family History Father Myocardial infarct Social History Housing: Apartment Alcohol intake: current Alcohol intake frequency: a few times a week Comment: once a week 3 beers Patient Tobacco Use Status: Current everyday Tobacco user Cigarette Packs Per Day: 1 Years Smoked: started 18 years old 8 cigarettes a day. service: No Current occupational status: employed Cognitive needs: No Hearing needs: No Vision needs: No Review of Systems Const All systems reviewed & are unremarkable except as noted in HPI and below Physical Exam Vital Signs: BMI result Body Mass Index 26.1 Extrem Other: Patient is alert, oriented, and in no acute distress. Neuro: Normal sensation of the tips of all digits of the left hand at this time Vascular: Cap refill brisk Pain: Minimal tenderness to palpation about mass of dorsal left wrist Range of motion of the left wrist and hand is painless ROM: Patient is able to make a closed fist and extend all digits of the left hand fully Range of motion of the left wrist full and intact with pronation supination flexion and extension being full Skin: No lacerations or abrasions. General: There is an approximately 4-5 cm in diameter fluctuant, mobile mass noted of the dorsal aspect of the left wrist No ecchymosis, erythema, or evidence of infection. Psych: Appears grossly normal Affect normal Attitude cooperative Assessment & Plan Assessment & Plan (1) Ganglion cyst of dorsum of left wrist: Code(s): M67.432 - Ganglion, left wrist Category: Medical Plan 1. Left dorsal wrist ganglion cyst I educated the patient about the condition. I discussed both operative and nonoperative treatment options. The patient would like to proceed with surgery. The risks and benefits of operative treatment were discussed with the patient and the patient wishes to proceed with surgery. These risks include, but are not limited to, risk of damage to blood vessels, nerves, tendons, infection, recurrence, incomplete relief of preoperative symptoms, persistent pain, pos sible need for further surgery, and the risks associated with regional blocks and/or anesthesia. Plan is to take the patient to the operating room at some point in the next few weeks for the following procedures: 1. Left dorsal wrist ganglion excision under general anesthesia All of the preoperative paperwork including the consent was discussed today. All of the patient's questions were answered in the clinic today. The patient understands that they will be in contact with our surgical garment fitter to discuss scheduling their procedure. Patient denies diabetes, blood thinners, asthma, heart issues, lung issues, kidney issues, or current smoking. Prescription strength ibuprofen ordered for significant left wrist pain due to cyst Medications: New ibuprofen 600 mg PO Q8H PRN 21 tabs 0RF pain Coding Level of Care Code Est Pt Level 4 (05155) Diagnoses Ganglion cyst of dorsum of left wrist M67.432
[2025-03-01 14:36] VITALS: BMI 26.1
== END 2025-03-01 15:01 | disposition home or self-care (01) ==
LOC: HO.HOS 13:59
DX: M67.432 Ganglion, left wrist (principal)
CPT/HCPCS: 99214

== ENCOUNTER → 2025-03-01 13:58 | Outpatient (BNVA) | payer SELFPAY | DX: Z01.818 Encounter for other preprocedural examination (principal); M67.432 Ganglion, left wrist | CPT/HCPCS: 99212 ==

== ENCOUNTER 2025-03-28 08:59 | Day surgery (SDC) | payer BC, SELFPAY ==
--- OUTSIDE RECORDS SUMMARY | 2025-03-19 14:07 | XMS_ITS | Clinical Summary ---
Author Organization [employer] Address [address] [facility] [address] [place] [address] Care Team Providers Care Ripsaw Grader Name Role Phone Unavailable Primary Care Provider [...] a test for HCV RNA (test code 65684) is suggested. For additional information please refer to http://[employer]/faq/AYM33i4 (This link is being provided for informational/ educational purposes only.) 12/15/2021 11:1 9 AM EDT Jennifer Roca LITERACY TEACHER HISTORICAL/NON ORDERABLE LABS Final Result Performing Organization Address [facility] de Phone Number [facility] [address] [place] [address], * HIV 1/2 ANTIGEN/ANTIBODY,FOURTH GENERATION W/RFL (12/15/2021 [...] purpose. For additional information please refer to http://[employer]/faq/QHD060 (This link is being provided for informational/ educational purposes only.) The performance of this assay has not been clinically validated in patients less than 2 years old. 12/15/2021 11:1 9 AM EDT Jennifer Gonzalezlily SOTELO LAB BLOOD ORDERABLES Final Res ult Performing Organization Address [facility] Co de Phone Number [facility] [address] [place] [address], * LIPID PANEL, STANDARD (12/15/2021 11:19 AM [...] LDL-C. Marcos SS et al. JOSHUA. 2013;310(19): 8741-4368 (http://education.[employer]/faq/YGL480) Non-HDL Cholesterol 101 <130 mg/dL (calc) [facility] Comment: For patients with diabetes plus 1 major ASCVD risk factor, treating to a non-HDL-C goal of <100 mg/dL (LDL-C of <70 mg/dL) is considered a therapeutic option. Triglycerides 69 <150 mg/dL [facility] 12/15/2021 11:1 9 AM EDT us Jennifer Roca NP LAB BLOOD ORDERABLES Final Res ult [facility] [address] from Last 3 Months or Most Recently Relevant to Health Maintenance Insurance * Guarantor: Justice Conn Account Type Relation to Patient Date of Phone Billing Address Personal/Family Self [address] [place] [address] [facility] STANDARD
--- NOTE | 2025-03-27 08:51 | HO.ANESPROP2 ---
Documented by User: Lori Stuart NP 04/02/25 14:46 HPI - Anesthesia Eval Consult details Narrative: 45yo M for Left Excision Wrist Dorsal Ganglion PMFSH Active Problems Active Problems: All Active Problems Ganglion cyst of dorsum of left wrist (Acute) Mass of skin of left thumb (Acute) Tobacco abuse (Acute) Tinea cruris (Acute) Ganglion cyst of tendon sheath of left hand (Acute) Scrotal cyst (Acute) Annual physical exam (Acute) Past Medical History Medical History Neck pain Family History Family History Father Myocardial infarct Surgical History Surgical History Hx of appendectomy H/O bilateral inguinal hernia repair Social History Social History Housing: Apartment Alcohol intake: current Alcohol intake frequency: does not drink Comment: once a week 3 beers Patient Tobacco Use Status: Current everyday Tobacco user Cigarette Packs Per Day: 1 Years Smoked: started 18 years old 8 cigarettes a day. service: No Current occupational status: employed Cognitive needs: No Hearing needs: No Vision needs: No Meds Allergies Allergy/AdvReac Type Severity Reaction Status Date / Time No Known Allergies Allergy Verified 03/01/25 14:35 Assessment and Plan Assessment Anesthesia Assessment: Chart Reviewed Documented by User: Sylvester Maradiaga MD 04/04/25 17:15 PMFSH Past Medical History Medical History Neck pain Family History Family History Father Myocardial infarct Family history of problems with anesthesia: No Surgical History Surgical History Hx of appendectomy H/O bilateral inguinal hernia repair History of Problems with Anesthesia: No Social History Social History Housing: Apartment Alcohol intake: current Alcohol intake frequency: does not drink Comment: once a week 3 beers Patient Tobacco Use Status: Current everyday Tobacco user Cigarette Packs Per Day: 1 Years Smoked: started 18 years old 8 cigarettes a day. service: No Current occupational status: employed Cognitive needs: No Hearing needs: No Vision needs: No Meds Allergies Allergy/AdvReac Type Severity Reaction Status Date / Time No Known Allergies Allergy Verified 03/01/25 14:35 Exam Airway Mallampati Class: II TM Dist: >3cm Neck ROM: Full Heart: ok Lungs: ok Assessment and Plan Assessment Anesthesia Assessment: Anesthesia Plan Discussed Final Anesthetic Review Family History of Problems with Anesthesia: No History of Problems with Anesthesia: No NPO: Yes ASA Class: II Final Preanesthetic Review: No Changes in Pt Med Stat, Meds/Allgs Chart Reviewed, Consent Obtained/Reviewed and Anes Risks/Benef Reviewed Patient Risk: Low Procedure Risk: Low Anesthetic Plan Anesthetic Plan: GA and Agree w/ Assess. and Plan Disposition: Standard PACU
[2025-03-27 15:39] VITALS: BMI 26.4
[2025-03-28] VITALS (7 sets, daily range): BP systolic 113–122; BP diastolic 78–96; PULSE 60–85; RESP 12–18; TEMP 36.4–36.6; O2SAT 97–100; BMI 26.8
--- NOTE | 2025-03-28 09:24 | MHC.SHP ---
Pre-Procedural Eval Section A - 24 Hr Update-Section A only Date of Service: 03/28/25 The patient is an INPATIENT: No Changes since office visit: No Cold of Flu in the past 2 weeks, No New Medical Problems, No Changes in Medication and No Patient answered all questions The patient has been examined within 24 hours of the surgical procedure. The History & Physical has been completed within 30 days and I have reviewed it.: Yes Section B - Complete if H&P > 30 days Chief Complaint: Ganglion, left wrist Allergies: Allergies Allergy/AdvReac Type Severity Reaction Status Date / Time No Known Allergies Allergy Verified 03/01/25 14:35 Plan I have reviewed the history and physical and performed a pertinent physical examination on my patient. No changes have occurred unless specified. Time Spent With Patient Time: Total time managing care of this patient today ____ minutes.
--- NOTE | 2025-03-28 09:25 | P.OP_ITS ---
Operative Note Operative Note Date of Service: 03/28/25 Narrative: Operative Note Narrative: Preop diagnosis: 1. Left dorsal wrist ganglion Postop diagnosis: 1. Left extensor tenosynovitis of the 4th and 5th dorsal compartments Procedure: 1. Tenosynovectomy of the left 4th and 5th dorsal compartments Surgeon: Mary Alfnoso MD Cutter And Presser: Brent PINA Anesthesia: General Findings: No ganglion. Fairly extensive inflamed tenosynovium about the tendons of the left 4th and 5th dorsal compartments. Tourniquet time: 19 minutes EBL: 5.0 ml Specimen: Tenosynovium from the left 4th and 5th dorsal compartments Drains: None Complications: None Disposition: Brought to the recovery room in stable condition Plan: Follow-up in 10-14 days for wound check, suture removal and to check pathology Indications: The patient is 45 years old with a left dorsal wrist ganglion that has been unresponsive to nonoperative management. The risks and benefits of operative treatment, including but not limited to risk of damage to blood vessels, nerves, tendons, infection, recurrence, persistent pain or numbness, or need for further surgery were discussed with the patient and they wished to proceed with surgery. Procedure: Once consent was obtained patient was brought back to the operating suite and placed in the operating table in a supine position. Perioperative antibiotics and anesthesia was administered by the anesthesia team. A tourniquet was applied to the proximal aspect of the left upper extremity and the limb was prepped and draped in a standard surgical fashion. The limb was elevated exsanguinated with Esmarch bandage and the tourniquet inflated to 250 mm of mercury for a total tourniquet time of 19 minutes. A 3 cm longitudinal incision was made centered over the dorsal aspect of the left wrist, centered over the dorsal wrist ganglion. The mass was located over the dorsal central aspect of the left wrist and roughly over the CMC joints. The incision was made with a #15 blade through the skin to the subcutaneous tissues. Tenotomy scissors were then used to carefully dissect down through the subcutaneous layer to the presumed dorsal wrist ganglion. Here we appreciated a goldsmith soft tissue mass and developing the extensor tendons of the 4th and 5th dorsal compartments. We therefore did not have a ganglion but rather fairly extensive extensor tenosynovitis. I then began our tenosynovectomy carefully dissecting this goldsmith inflamed tenosynovium from about each of the extensor tendons both in the 4th and the 5th dorsal compartments. The tissue envelop each of these tendons, but fortunately there did not appear to be any attenuation or growth into the tendons themselves. We also were able to withdraw some of this inflamed tenosynovium distally from beneath the extensor retinaculum. This inflamed tenosynovium was then excised from the patient and placed on the back table to be sent for histopathology. No further masses were appreciated, and I did not appreciate any more of the inflamed tenosynovial tissue proximally beneath the extensor retinaculum. At this point the tourniquet was deflated and hemostasis obtained with a brief period of local pressure and bipolar electrocautery. Wound was irrigated with normal saline. The skin edges were reapproximated with some 5-0 Prolene suture. The wound was infiltrated with some 1% lidocaine with epinephrine for postop pain control and a sterile dressing was applied. The patient appears to have tolerated the procedure well and with no complications. All digits were well vascularized conclusion of the case.
[2025-03-28] MEDS: Lactated Ringers 1,000 ML 100 ML IVCONT (09:26)
--- NOTE | 2025-03-28 09:26 | PC.NURSE ---
patient had an episode of dizziness, n/v and was diaphoretic while this rn placed an iv lasted 30seconds to 1min conscious thru the episode speaking to this rn and stated im afraid of needles and this always happens when i get one one episode of vomiting bile. pt felt better after vomiting giving pt a bolus fluid. speaking to dr street now nad
== END 2025-03-28 13:16 | disposition home or self-care (01) ==
PROVIDERS: PCP Internal Medicine; Visit Provider Orthopaedic Surgery
PROC: (CPT 25116; principal; 2025-03-28 11:10)
DX: M65.842 Other synovitis and tenosynovitis, left hand (principal); M54.2 Cervicalgia; Z98.890 Other specified postprocedural states; F17.210 Nicotine dependence, cigarettes, uncomplicated
CPT/HCPCS: 25116; 88304; J0131; J0690; J2003; J2004; J2704; J3010

== ENCOUNTER → 2025-03-28 08:59 | Outpatient (BNV) | payer BC, SELFPAY | PROVIDERS: PCP Internal Medicine; Visit Provider Orthopaedic Surgery | DX: M67.432 Ganglion, left wrist (principal) | CPT/HCPCS: 25111 ==

== ENCOUNTER 2025-04-10 09:59 | Outpatient (AMB) | payer BC, SELFPAY ==
--- NOTE | 2025-04-10 10:03 | A.OFFVIS_ITS ---
Vital Signs 04/10/25 10:09 Height 5 ft 10 in Weight 186 lb BMI 26.7 Intake Visit Reasons: PO LT 4th & 5th DC Tenosynovectomy 03/28/25 AR Intake Note: Justice is a 45 year old right hand dominant male who presents today for a Post- Operative visit status post Left Ring and Small Finger Dorsal Compartment Tenosynovectomy performed 03/28/[address] Alfonso. Patient reports he is doing well. He denies numbness, tingling, finger locking, or pain. He is concerned for swelling or re-occurrence as there seems to be a fluid-like bubble under his incision. Patient is not taking any pain medications at this time. Allergies No Known Allergies Allergy (Verified 03/01/25 14:35) HPI HPI PO LT & 5th DC Tenosynovectomy 03/28/25 AR: Details: Justice is a 45 year old right hand dominant male who presents today for a Post- Operative visit status post Left Ring and Small Finger Dorsal Compartment Tenosynovectomy performed 03/28/[address] Alfonso. Patient reports he is doing well. He denies numbness, tingling, finger locking, or pain. He is concerned for swelling or re-occurrence as there seems to be a fluid-like bubble under his incision. Patient is not taking any pain medications at this time. Denies redness, pain. [facility] Medical History Neck pain Surgical History Hx of appendectomy H/O bilateral inguinal hernia repair Family History Father Myocardial infarct Social History Housing: Apartment Alcohol intake: current Alcohol intake frequency: does not drink Comment: once a week 3 beers Patient Tobacco Use Status: Current everyday Tobacco user Cigarette Packs Per Day: 1 Years Smoked: started 18 years old 8 cigarettes a day. service: No Current occupational status: employed Cognitive needs: No Hearing needs: No Vision needs: No Review of Systems Const All systems reviewed & are unremarkable except as noted in HPI and below Physical Exam Vital Signs: BMI result Body Mass Index 26.7 Extrem Other: Patient is alert, oriented, and in no acute distress. Neuro: Normal sensation of the tips of all digits of the left hand at this time Vascular: Cap refill brisk Pain: Minimal tenderness to palpation about mass of dorsal left wrist Range of motion of the left wrist and hand is painless ROM: Patient is able to make a closed fist and extend all digits of the left hand fully Range of motion of the left wrist full and intact with pronation supination flexion and extension being full Skin: No lacerations or abrasions. General: There is an approximately 4-5 cm in diameter fluctuant area noted of the dorsal aspect of the left wrist, that appears to be fluid filled No ecchymosis, erythema, or evidence of infection. Psych: Appears grossly normal Affect normal Attitude cooperative Office Procedures Aspiration of Seroma Aspiration of Seroma: [id number] Seroma Aspiration All charges added?: Procedure code (CPT) selection complete Assessment & Plan Assessment & Plan (1) Extensor tenosynovitis of left wrist: Code(s): M65.832 - Other synovitis and tenosynovitis, left forearm Category: Medical Plan 1. Status post extensor tenosynovectomy of left wrist With postoperative seroma formation Patient is educated about this condition Patient is educated about the typical recovery course After discussion with Dr. Alfonso, I feel that the best course of action is to perform aspiration of the seroma Area adjacent to surgical incision on the dorsal aspect of the left wrist is aseptically prepped using Betadine and ChloraPrep. Approximately 2 cc of lidocaine are injected into the subcutaneous area and into the seroma itself using a 27 gauge needle. After this, A 10 cc syringe with an 18 gauge needle is inserted into the area of seroma formation and approximately 7 cc of serous fluid is aspirated. This fluid is translucent, straw-colored, and not concerning for infectious etiology. Sutures removed, Steri-Strips applied without issue Patient is also provided with dressing supplies to allow for gentle compression of the area to discourage seroma re-formation Patient understands this in his amenable to this plan Follow-up as needed with any acute concerns Coding Level of Care Code Global (43335) Diagnoses Extensor tenosynovitis of left wrist M65.832 CPT Codes Aspiration of Seroma ([id number])
[2025-04-10 10:09] VITALS: BMI 26.7
--- OUTSIDE RECORDS SUMMARY | 2025-04-10 11:42 | XMS_ITS | Clinical Summary ---
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 There is no laboratory evidence of HCV infection. In most cases, no further action is required. However, if recent HCV exposure is suspected, a test for HCV RNA (test code 83832) is suggested. For additional information please refer to http://Front Flip.Quinyx AB/faq/BSS80u9 (This link is being provided for informational/ educational purposes only.) 12/15/2021 11:1 9 AM EDT Jennifer Roca ADMISSIONS OFFICER HISTORICAL/NON ORDERABLE LABS Final Result Performing Organization Address [facility] de Phone Number [facility] [address] [place] [address], * HIV 1/2 ANTIGEN/ANTIBODY,FOURTH GENERATION W/RFL (12/15/2021 11:19 AM EDT) HIV-1/2 ANTIGEN AND ANTIBODIES, 4TH GENERATION W/ REFLEX NON-REACT DAPHNE NON-REACT DAPHNE [facility] Comment: HIV-1 antigen and HIV-1/HIV-2 [...] purpose. For additional information please refer to http://Front Flip.Quinyx AB/faq/FHG093 (This link is being provided for informational/ educational purposes only.) The performance of this assay has not been clinically validated in patients less than 2 years old. 12/15/2021 11:1 9 AM EDT Jennifer Gonzalezlily SOTELO LAB BLOOD ORDERABLES Final Res ult Performing Organization Address [facility] Co de Phone Number [facility] [address] [place] [address], * LIPID PANEL, STANDARD (12/15/2021 11:19 AM EDT) Chol/HDLC Ratio 2.4 <5.0 (calc) [facility] Cholesterol, Total 174 <200 mg/dL [facility] HDL Cholesterol 73 > OR = 40 mg/dL [facility] LDL Cholesterol 85 mg/dL (calc) [facility] Comment: Reference range: <100 Desirable range <100 mg/dL for primary prevention; <70 mg/dL for patients with CHD or diabetic patients with > or = 2 CHD risk factors. LDL-C is now calculated using the Robert calculation, which is a validated novel method providing better accuracy than the Friedewald equation in the estimation of LDL-C. Marcos SS et al. JOSHUA. 2013;310(19): 1560-9674 (http://education.EQO/faq/YQG640) Non-HDL Cholesterol 101 <130 mg/dL (calc) [facility] Comment: For patients with diabetes plus 1 major ASCVD risk factor, treating to a non-HDL-C goal of <100 mg/dL (LDL-C of <70 mg/dL) is considered a therapeutic option. Triglycerides 69 <150 mg/dL [facility] 12/15/2021 11:1 9 AM EDT us Jennifer Roca NP LAB BLOOD ORDERABLES Final Res ult [facility] [address] from Last 3 Months or Most Recently Relevant to Health Maintenance Insurance * Guarantor: Justice Conn Account Type Relation to Patient Date of Phone Billing Address Personal/Family Self [address] [place] [address] [facility] STANDARD
== END 2025-04-10 10:30 | disposition home or self-care (01) ==
LOC: HO.HOS 10:00
PROVIDERS: PCP Internal Medicine
DX: M65.832 Other synovitis and tenosynovitis, left forearm (principal)
CPT/HCPCS: 10160; 99024

== ENCOUNTER → 2025-04-10 09:59 | Outpatient (BNVA) | payer BC, SELFPAY | PROVIDERS: PCP Internal Medicine | DX: M65.832 Other synovitis and tenosynovitis, left forearm (principal) | CPT/HCPCS: 10160; J2003 ==

== ENCOUNTER 2025-04-26 12:11 | Emergency (ER) | payer BC, SELFPAY ==
[2025-04-26 12:27] VITALS: BP 172/99; PULSE 77; RESP 18; TEMP 37; O2SAT 97; BMI 26.1
--- NOTE | 2025-04-26 12:27 | ED_ITS ---
HPI - General Adult General Chief complaint: Extremity Injury, Upper Stated complaint: swollen left hand Time Seen by Provider: 04/26/25 12:41 Source: patient Mode of arrival: ambulatory Limitations: no limitations History of Present Illness ED Provider: Krissy Gonzalez PA-C HPI narrative: Patient is a 45 year old assigned male at with a history of left wrist ganglion cyst removal on 03/28/[address] Alfonso presenting to the emergency department today with swelling to his left wrist. Patient states that he had this swelling happen after his surgery and was told that it was a seroma. Patient states that he had it drained in the orthopedic office but now has it has returned. Patient states that he is having pain secondary from the swelling pressure but still has range of motion with no numbness or tingling. Patient denies any other complaints at this time. Related Data Previous Rx's ?Medication ?Instructions ?Recorded hydrocodone 5 mg-acetaminophen 325 1 tab PO Q6H PRN pa in #15 tabs 03/28/25 mg tablet Allergies Allergy/AdvReac Type Severity Reaction Status Date / Time No Known Allergies Allergy Verified 04/26/25 12:30 Review of Systems 2 Constitutional: Constitutional: Reports as per HPI Eyes: Eyes: Reports as per HPI ENT: Reports as per HPI Cardiovascular: Cardiovascular: Reports as per HPI Respiratory: Respiratory: Reports as per HPI Gastrointestinal: Gastrointestinal: Reports as per HPI Genitourinary: Genitourinary: Reports as per HPI Musculoskeletal: Musculoskeletal: Reports as per HPI Integumentary/Breasts: Skin/Breast: Reports as per HPI Neurologic: Reports as per HPI Psychiatric: Psychiatric: Reports as per HPI Endocrine: Endocrine: Reports as per HPI Hematologic/Lymphatic: Hematologic/Lymphatic: Reports as per HPI Allergic/Immunologic: Allergic/Immunologic: Reports as per HPI PMFSH Past Medical History Attestation statement: The following information was validated with the patient. Source: old records reviewed and nursing notes reviewed Medical History Neck pain Surgical History Hx of appendectomy H/O bilateral inguinal hernia repair Family History Family History Father Myocardial infarct Social History Social History Housing: Apartment Alcohol intake: current Alcohol intake frequency: does not drink Comment: once a week 3 beers Patient Tobacco Use Status: Current everyday Tobacco user Cigarette Packs Per Day: 1 Years Smoked: started 18 years old 8 cigarettes a day. Advance Directives: No Advance Directives Information Provided: No service: No Current occupational status: employed Cognitive needs: No Hearing needs: No Vision needs: No Physical Exam ED Vital Signs: Vital Signs - 24 hr 04/26/25 12:27 04/26/25 12:50 Temperature 98.6 F 98.6 F Pulse Rate 77 77 Respiratory Rate 18 18 Blood Pressure 172/99 H 172/99 H Pulse Oximetry 97 97 Oxygen Delivery Method Room Air Room Air BMI result Body Mass Index 26.1 Const General: cooperative, no acute distress, alert and awake Nutritional Appearance: well nourished Orientation/consciousness: patient oriented x3 HENMT Head: Yes normal to inspection and Yes atraumatic Ears: hearing grossly normal bilaterally and external ears normal General nose exam: Normal external nose present, no nasal discharge noted and no epistaxis Face and sinus: Yes normal facial exam, No abrasion and No laceration Mouth: Normal oral and palatal mucosa present, no drooling and no muffled voice Eyes General: appearance normal, both eyes and all related structures Periorbital: periorbital findings normal Eyelids: Yes eyelids normal Conjunctivae: conjunctivae normal Pupils: Equal, round and reactive pupils present EOM: EOMs intact bilaterally Neck Neck: Yes normal visual inspection and Yes full ROM Resp Effort & Inspection: normal respiratory effort and able to speak in complete sentences Neuro General: patient oriented x3, moves all extremities and CN's II-XI intact bilaterally Cranial nerves: Yes Equal, round and reactive pupils present Cognition (Neuro): normal cognition Extrem Other: General: Yes full ROM and Yes capillary refill normal Psych Appearance: grossly normal Mental Status: mental status grossly normal Affect: normal affect Attitude: cooperative Thought process: Normal thought process present Thought content: Normal thought content present Insight: Good insight present (Psych) Course Course Course Narrative: Rapid medical examination performed in triage by Krissy Gonzalez PA-C: Patient is a 45 year old assigned male at presenting to the emergency department with left hand / wrist swelling. Patient states he had left hand / wrist surgery on 03/28/2025 and he has had some issues with post operative seroma that was drained. Patient states that he now has re-swelling that is worsening. Detailed physical exam and review of systems are deferred to the lan engineer. Patient placed back in the waiting room pending room availability. Procedures Orthopedic Splinting/Casting Left wrist seroma / swelling: Side: left Upper Extremity Injury Location: wrist Upper Extremity Immobilizer: Scar wrap Medical Decision Making Medical Decision Making MDM Narrative: Patient is a 45 year old assigned male at with a history of left wrist ganglion cyst removal on 03/28/[address] Alfonso presenting to the emergency department today with swelling to his left wrist. Patient's physical exam was as noted in the physical exam portion of this note and consistent with a seroma vs. recurrence of ganglion cyst in the left wrist. Patient's left wrist swelling / lump was fluctuant and not indurated with no erythema or warmth. I spoke to the orthopedic team who recommended discharge with follow up in the office on Tuesday for potential re-draining. I explained my physical exam findings to the patient. I answered all questions asked by the patient. I applied an SCAR wrap to the swollen area of the left wrist, without incident. Patient's PMS was intact prior to and after SCAR placement. I stressed the importance of the patient taking his medication as directed (either prescribed or as the over the counter packaging recommends). I stressed the importance of the patient following up with his primary care provider and the orthopedic team. I stressed the importance of the patient returning to the emergency department immediately if his symptoms were to worsen or if he were to develop any numbness / tingling, dizziness, shortness of breath, difficulty breathing, chest pain, blurry vision, loss of vision, nausea, vomiting, abdominal pain, fever, chills, back pain, or any other complaints. Patient verbalized agreement and understanding with this treatment plan and discharge. Differential Diagnosis Differential Diagnoses: The differential diagnosis associated with the presentation includes Left wrist swelling Left wrist seroma Left wrist pain Admission/Observation Consideration of admission/observation: Escalation of care including admission/observation considered Patient would have been admitted to the hospital had his clinical presentation warranted hospital admission. Consult Healthcare Provider Management of the patient was discussed with: Fender Repairer (spoke with the orthopedic team as noted in the MDM Rationale portion of this note. ) Tests considered The following testing was considered but not selected: I considered obtaining a left wrist x-ray however, the patient's clinical presentation did not warrant it at this time. Discharge Plan Discharge Clinical Impression: Pain and swelling of wrist Qualifiers: Laterality: left Qualified Code(s): M25.532 - Pain in left wrist Patient Disposition: Home, Self-Care Instructions: Seroma (DC) Additional Instructions: The swelling to your left wrist is likely a recurrence of the post-operative seroma you had previously drained that will need to be drained again by the Orthopedic Team. Call them first thing Tuesday (04/29/2025) to set up an appointment for drainage. I applied an SCAR wrap to the area today however - it is up to you if you want to leave it on. It should NEVER be so tight that you have change in color, sensation, or moving to your left fingers. Keep your left hand elevated when at rest. IF you are prescribed home medications and/or you are taking over the counter medications at home - it is very important you continue to do so as prescribed / directed unless told otherwise by a healthcare provider. Follow up with your primary care provider. Do your best to stay well hydrated and rest. Return to the emergency department immediately if your symptoms worsen or if you develop any numbness, tingling, dizziness, shortness of breath, difficulty breathing, chest pain, blurry vision, loss of vision, nausea, vomiting, abdominal pain, fever, chills, back pain, or any other complaints. L If you do not have a primary care provider - call any of the below numbers to establish and follow up with a primary care provider. [facility] Primary Care ([place]) [phone] [place] [address], [address] [facility] Primary Care ([address] [place]) [phone] [place] [address], [address] [facility], [address] [facility] Primary Care ([address] [place]) [phone] [place] [address], [address] [facility], [address] [facility] Primary Care ([place]) [phone] [place] [address], [address] [facility], [address] [facility] Family Medicine [phone] [address] [facility], [address] Please see the information below about our Patient Portal. If you are not yet enrolled in the [facility] Patient Portal, you will receive an enrollment email invitation following your visit to any [facility] setting. You may also self-enroll in the Patient Portal by visiting our website: [email or web address] The following information is required to access the Patient Portal: - Your [facility] Medical Record Number - Your personal home email address (must match what is in your electronic medical record, Registration staff can assist with this) - Name - Date of Capabilities of the Patient Portal: - Message some providers - View upcoming appointments - Access your health summary, medical history, and visit history - View current conditions and allergies - View procedure and lab results - View your medications, including guidelines, side effects, and precautions - Complete pre-appointment questionnaires requested by your provider - Ready summary reports of your office visits and procedures To access the Patient Portal Mobile Geoffrey, follow these directions: - Search LinguaNext in the Geoffrey Store or Google TokBox Store - Download the Geoffrey - Search for [facility] - Enter your login/password Prescriptions: No Action hydrocodone-acetaminophen 5-325 mg tablet 1 tab PO Q6H PRN (Reason: pain) Qty: 15 0RF Rx Instructions: Partial Fill upon patient request. Referrals: [facility] Orthopedic Surgeons [Provider Group] Referral Note: Call first thing Tuesday (04/29/2025) to set up an appointment for draining of the left hand swelling. Tavia Breaux MD [Primary Care Provider, Internal Medicine] Stand Alone Forms: Work/School Release Interventions: ED Discharge Assessment Last Done: 04/26/25 12:50 Discharge Date/Time: 04/26/25 12:50 Print Language: Icelandic
--- OUTSIDE RECORDS SUMMARY | 2025-04-26 12:48 | XMS_ITS | Clinical Summary ---
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 For additional information please refer to http://Shanpow.com.EBR Systems/faq/VFQ55l7 (This link is being provided for informational/ educational purposes only.) 12/15/2021 11:1 9 AM EDT Jennifer Roca MEDICAL OFFICE PROFESSIONAL INSTRUCTOR HISTORICAL/NON ORDERABLE LABS Final Result Performing Organization Address [facility] de Phone Number [facility] [address] [place] [address], * HIV 1/2 ANTIGEN/ANTIBODY,FOURTH GENERATION W/RFL (12/15/2021 [...] purpose. For additional information please refer to http://Shanpow.com.EBR Systems/faq/SXW417 (This link is being provided for informational/ educational purposes only.) The performance of this assay has not been clinically validated in patients less than 2 years old. 12/15/2021 11:1 9 AM EDT Jennifer Gonzalezlily SOTELO LAB BLOOD ORDERABLES Final Res ult Performing Organization Address [facility] Co de Phone Number [facility] [address] [place] [address], * LIPID PANEL, STANDARD (12/15/2021 11:19 AM [...] LDL-C. Marcos SS et al. JOSHUA. 2013;310(19): 7930-2345 (http://education.HydroBuilder.com/faq/OAF857) Non-HDL Cholesterol 101 <130 mg/dL (calc) [facility] Comment: For patients with diabetes plus 1 major ASCVD risk factor, treating to a non-HDL-C goal of <100 mg/dL (LDL-C of <70 mg/dL) is considered a therapeutic option. Triglycerides 69 <150 mg/dL [facility] 12/15/2021 11:1 9 AM EDT us Jennifer Roca NP LAB BLOOD ORDERABLES Final Res ult [facility] [address] from Last 3 Months or Most Recently Relevant to Health Maintenance Insurance * Guarantor: Justice Conn Account Type Relation to Patient Date of Phone Billing Address Personal/Family Self [address] [place] [address] [facility] STANDARD
[2025-04-26 12:50] VITALS: BP 172/99; PULSE 77; RESP 18; TEMP 37; O2SAT 97
== END 2025-04-26 12:50 | disposition home or self-care (01) ==
PROVIDERS: Emergency Provider Emergency Medicine; PCP Internal Medicine
DX: M25.532 Pain in left wrist (principal)
CPT/HCPCS: 99282

== ENCOUNTER 2025-04-29 14:52 | Outpatient (AMB) | payer BC, SELFPAY ==
[2025-04-29 15:02] VITALS: BMI 26.0
--- NOTE | 2025-04-29 15:02 | A.OFFVIS_ITS ---
Vital Signs 04/29/25 15:02 Height 6 ft Weight 192 lb BMI 26.0 Intake Visit Reasons: PO LT 4th & 5th DC Tenosynovectomy 03/28/25 AR Intake Note: Justice is a 45 year old right hand dominant male who presents today for a Post- Operative visit status post Left Ring and Small Finger Dorsal Compartment Tenosynovectomy performed 03/28/[address] Alfonso. Patient presented to [facility] ED on 04/26/25 due to increased swelling. At the ED, he was found to have left wrist swelling with a fluctuating, not indurated, lump without erythema or warmth. Patient was provided with an charly wrap. Allergies No Known Allergies Allergy (Verified 04/29/25 15:13) HPI HPI PO LT 4th & 5th DC Tenosynovectomy 03/28/25 AR: Details: Justice is a 45 year old right hand dominant male who presents today for a Post- Operative visit status post Left Ring and Small Finger Dorsal Compartment Tenosynovectomy performed 03/28/[address] Alfonso. Patient presented to [facility] ED on 04/26/25 due to increased swelling. At the ED, he was found to have left wrist swelling with a fluctuating, not indurated, lump without erythema or warmth. Patient was provided with an charly wrap. This is now larger than it was at previous visit, and there is a pocket that appears to extend over the 4th metacarpal head of the left hand. Patient denies any pain or tenderness to palpation. No other acute complaints or concerns at this time. ON LICENSE OF [facility] Medical History Neck pain Surgical History Hx of appendectomy H/O bilateral inguinal hernia repair Family History Father Myocardial infarct Social History Housing: Apartment Alcohol intake: current Alcohol intake frequency: does not drink Comment: once a week 3 beers Patient Tobacco Use Status: Current everyday Tobacco user Cigarette Packs Per Day: 1 Years Smoked: started 18 years old 8 cigarettes a day. service: No Current occupational status: employed Cognitive needs: No Hearing needs: No Vision needs: No Physical Exam Vital Signs: BMI result Body Mass Index 26.0 Extrem Other: Patient is alert, oriented, and in no acute distress. Neuro: Normal sensation of the tips of all digits of the left hand at this time Vascular: Cap refill brisk Pain: Minimal tenderness to palpation about mass of dorsal left wrist Range of motion of the left wrist and hand is painless ROM: Patient is able to make a closed fist and extend all digits of the left hand fully Range of motion of the left wrist full and intact with pronation supination flexion and extension being full Skin: No lacerations or abrasions. General: There is an approximately 4-5 cm in diameter fluctuant area noted of the dorsal aspect of the left wrist, that appears to be fluid filled, with a new pocket that appears to extend over the left 4th metacarpal head and neck No ecchymosis, erythema, or evidence of infection. Psych: Appears grossly normal Affect normal Attitude cooperative Office Procedures Aspiration of Seroma Aspiration of Seroma: 68987 Seroma Aspiration All charges added?: Procedure code (CPT) selection complete Assessment & Plan Assessment & Plan (1) Extensor tenosynovitis of left wrist: Code(s): M65.832 - Other synovitis and tenosynovitis, left forearm Category: Medical Plan 1. Status post extensor tenosynovectomy of left wrist With postoperative seroma formation Patient is educated about this condition Patient is educated about the typical recovery course After discussion with Dr. Alfonso, I feel that the best course of action is to perform aspiration of the seroma Area adjacent to surgical incision on the dorsal aspect of the left wrist is aseptically prepped using Betadine and ChloraPrep. Approximately 2 cc of lidocaine are injected into the subcutaneous area and into the seroma itself using a 27 gauge needle. After this, A 10 cc syringe with an 18 gauge needle is inserted into the area of seroma formation and approximately 14 cc of serous fluid is aspirated. This fluid is translucent, straw-colored in 10 2 with blood, not concerning for infectious etiology. Patient is also provided with dressing supplies to allow for gentle compression of the area to discourage seroma re-formation Patient understands this in his amenable to this plan Follow-up in one-week with Dr. Alfonso for recurrent surgical site seroma, sooner with any acute concerns Coding Level of Care Code Global (89551) Diagnoses Extensor tenosynovitis of left wrist M65.832 CPT Codes Aspiration of Seroma ([id number])
--- OUTSIDE RECORDS SUMMARY | 2025-04-29 18:08 | XMS_ITS | Clinical Summary ---
Author Organization [employer] Address [address] [place] [address] Care Team Providers Care Supervisor Dumping Name Role Phone Unavailable Primary Care Provider [...] HEPATITIS C ANTIBODY NON-REACT DAPHNE NON-REACT DAPHNE [facility] INDEX 0.02 <1.00 [facility] Comment: HCV antibody was non-reactive. There is no laboratory evidence of HCV infection. In most cases, no further action is required. However, if recent HCV exposure is suspected, a test for HCV RNA (test code 27422) is suggested. For additional information please refer to http://My Digital Life.Titansan/faq/QLS70d5 (This link is being provided for informational/ educational purposes only.) 12/15/2021 11:1 9 AM EDT Jennifer Roca CHARGING OPERATOR HISTORICAL/NON ORDERABLE LABS Final Result Performing Organization Address [facility] de Phone Number [facility] [address] [place] [address], * HIV 1/2 ANTIGEN/ANTIBODY,FOURTH GENERATION W/RFL (12/15/2021 11:19 AM EDT) HIV-1/2 ANTIGEN AND ANTIBODIES, 4TH GENERATION W/ REFLEX NON-REACT DAPHNE NON-REACT DAPHNE [facility] Comment: HIV-1 antigen and HIV-1/HIV-2 [...] purpose. For additional information please refer to http://My Digital Life.Titansan/faq/ZNY294 (This link is being provided for informational/ educational purposes only.) The performance of this assay has not been clinically validated in patients less than 2 years old. 12/15/2021 11:1 9 AM EDT Jennifer Gonzalezlily SOTELO LAB BLOOD ORDERABLES Final Res ult Performing Organization Address [facility] Co de Phone Number [facility] [address] [place] [address], * LIPID PANEL, STANDARD (12/15/2021 11:19 AM EDT) Chol/HDLC Ratio 2.4 <5.0 (calc) [facility] Cholesterol, Total 174 <200 mg/dL [facility] HDL Cholesterol 73 > OR = 40 mg/dL [facility] LDL Cholesterol 85 mg/dL (calc) [facility] Comment: Reference range: <100 Desirable range <100 mg/dL for primary prevention; <70 mg/dL for patients with CHD or diabetic patients with > or = 2 CHD risk factors. LDL-C is now calculated using the Robert calculation, which is a validated novel method providing better accuracy than the Friedewald equation in the estimation of LDL-C. Marcos SS et al. JOSHUA. 2013;310(19): 7030-2547 (http://education.Billingstreet/faq/ZXI234) Non-HDL Cholesterol 101 <130 mg/dL (calc) [facility] Comment: For patients with diabetes plus 1 major ASCVD risk factor, treating to a non-HDL-C goal of <100 mg/dL (LDL-C of <70 mg/dL) is considered a therapeutic option. Triglycerides 69 <150 mg/dL [facility] 12/15/2021 11:1 9 AM EDT us Jennifer Roca NP LAB BLOOD ORDERABLES Final Res ult [facility] [address] from Last 3 Months or Most Recently Relevant to Health Maintenance Insurance * Guarantor: Justice Conn Account Type Relation to Patient Date of Phone Billing Address Personal/Family Self [address] [place] [address] [facility] STANDARD
== END 2025-04-29 15:22 | disposition home or self-care (01) ==
LOC: HO.HOS 14:53
PROVIDERS: PCP Internal Medicine
DX: M65.832 Other synovitis and tenosynovitis, left forearm (principal)
CPT/HCPCS: 10160; 99024

== ENCOUNTER → 2025-04-29 14:52 | Outpatient (BNVA) | payer BC, SELFPAY | PROVIDERS: PCP Internal Medicine | DX: Z47.89 Encounter for other orthopedic aftercare (principal); L76.34 Postprocedural seroma of skin and subcutaneous tissue following other procedure; Z87.39 Personal history of other diseases of the musculoskeletal system and connective tissue | CPT/HCPCS: 10160; J2003 ==

== ENCOUNTER 2025-05-07 14:58 | Outpatient (AMB) | payer BC, SELFPAY ==
[2025-05-07 15:07] VITALS: BMI 26.0
--- NOTE | 2025-05-07 15:07 | MHC.OFFVIS ---
Vital Signs 05/07/25 15:07 Height 6 ft Weight 192 lb BMI 26.0 Intake Visit Reasons: PO- recurrent seroma of L hand Intake Note: Justice is a 45 year old right hand dominant male who presents today for a Post-Operative visit status post Left Ring and Small Finger Dorsal Compartment Tenosynovectomy performed 03/28/[address] Alfonso. Patient was last seen with Loki Kennedy who advise patient to be re-evalutaed for recurrent surgical site seroma. Allergies No Known Allergies Allergy (Verified 05/07/25 15:16) HPI HPI PO- recurrent seroma of L hand: Details: Justice is a 45 year old right hand dominant man who presents for a recurrent seroma of his left wrist. He is S/P Tenosynovectomy of the left 4th and 5th dorsal compartments, DOS: 03/28/25. He was last seen by SILVANA Kennedy on 04/29/25 for a seroma aspiration & drainage. He says he is doing well overall, but he continues to have pain in his wrist and dorsal hand. 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 [facility] Medical History Neck pain Surgical History Hx of appendectomy H/O bilateral inguinal hernia repair Family History Father Myocardial infarct Social History Housing: Apartment Alcohol intake: current Alcohol intake frequency: does not drink Comment: once a week 3 beers Patient Tobacco Use Status: Current everyday Tobacco user Cigarette Packs Per Day: 1 Years Smoked: started 18 years old 8 cigarettes a day. service: No Current occupational status: employed Cognitive needs: No Hearing needs: No Vision needs: No Review of Systems Const All systems reviewed & are unremarkable except as noted in HPI and below Physical Exam Vital Signs: BMI result Body Mass Index 26.0 Const General: cooperative, healthy appearing and no acute distress Orientation/consciousness: patient oriented x3 HEENT Head: Yes normocephalic and Yes atraumatic Eyes EOM: EOMs intact bilaterally Resp Effort & Inspection: normal respiratory effort and able to speak in complete sentences Cardio Jugular venous distension: no JVD Skin General skin exam: turgor normal Rashes: no rashes Neuro General: patient oriented x3 Extrem Other: Evaluation of Left Upper Extremity: The patient is alert, oriented, and in no acute distress Neuro: Median, Ulnar, Radial nerves motor and sensory intact and sensation is normal to the tips of all digits Vascular: Cap refill brisk ROM: He can make a fist and extend all his digits Fairly large mass over dorsal aspect of left hand, between wrist joint & metacarpal shafts. This is attached to the metacarpals, somewhat mobile with finger ROM, mildly tender Measuring ~4cm*5cm*5-10mm in thickness He has more generalized swelling to 2nd & 3rd metacarpals extending to extensor wrist joint and extensor retinaculum Pathology report 03/28/25 Diagnosis Left dorsal extensor tenosynovium, excision: Synovial hyperplasia with mild acute and chronic inflammation, focal fibrinoid necrosis and hemosiderin deposition (see comment). COMMENT: Clinical and serological correlation is suggested to rule out rheumatoid synovitis Psych Appearance: grossly normal Affect: normal affect Attitude: cooperative Assessment & Plan Assessment & Plan (1) Extensor tenosynovitis of left wrist: Code(s): M65.832 - Other synovitis and tenosynovitis, left forearm Category: Medical Plan Assessment & Plan: 1. Left wrist extensor tenosynovitis, recurrence S/P tenosynovectomy Of the 4th & 5th dorsal compartments DOS: 03/28/25 With post-op seroma formation, S/P aspiration, done on 04/29/25 With a mass over the dorsal aspect of the wrist, measuring ~4cm*5cm*5-10mm in thickness I educated him about this condition I referred him to Rheumatology for assessment for possible rheumatologic conditions He will work on ROM exercises at home He will follow up in 4-6 weeks to see how he is doing. I reached out via [place] text to Dr. Scott in Rheumatology, asking if the patient can be seen in 6-8 weeks. It sounds like the next new patient visit available is in December of 2025. Given that it is going to take a fair amount of time to get him with rheumatology, if he is still having painful symptoms when we see him in follow-up, we might consider a repeat tenosynovectomy at that time to protect the tendons. Scribed for Mary Alfonso MD by Hayes Woodard, medical detailist, on 05/07/25 at 3:25 PM, EST. Orders: Referrals Rheumatology Referral M65.832 - Other synovitis and tenosynovitis, left forearm Coding Level of Care Code Est Pt Level 3 (74090) Diagnoses Extensor tenosynovitis of left wrist M65.832
--- OUTSIDE RECORDS SUMMARY | 2025-05-07 21:17 | XMS_ITS | Clinical Summary ---
Author Organization [employer] Address [address] [facility] [address] [facility] [address] [place] [address] Care Team Providers Care Nailhead Operator Name Role Phone Unavailable Primary Care [...] HEPATITIS C ANTIBODY NON-REACT DAPHNE NON-REACT DAPHNE [facility] INDEX 0.02 <1.00 [facility] Comment: HCV antibody was non-reactive. There is no laboratory evidence of HCV infection. In most cases, no further action is required. However, if recent HCV exposure is suspected, a test for HCV RNA (test code 04592) is suggested. For additional information please refer to http://[employer]ive.Yingying Licai/faq/NWK97q8 (This link is being provided for informational/ educational purposes only.) 12/15/2021 11:1 9 AM EDT Jennifer Roca PRINTING TABLE WORKER HISTORICAL/NON ORDERABLE LABS Final Result Performing Organization Address [facility] de Phone Number [facility] [address] [place] [address], * HIV 1/2 ANTIGEN/ANTIBODY,FOURTH GENERATION W/RFL (12/15/2021 11:19 AM EDT) HIV-1/2 ANTIGEN AND ANTIBODIES, 4TH GENERATION W/ REFLEX NON-REACT DAPHNE NON-REACT DAPHNE [facility] Comment: HIV-1 antigen and HIV-1/HIV-2 [...] purpose. For additional information please refer to http://[employer]ive.Yingying Licai/faq/MAY579 (This link is being provided for informational/ educational purposes only.) The performance of this assay has not been clinically validated in patients less than 2 years old. 12/15/2021 11:1 9 AM EDT Jennifer Gonzalezlily SOTELO LAB BLOOD ORDERABLES Final Res ult Performing Organization Address [facility] Co de Phone Number [facility] [address] [place] [address], * LIPID PANEL, STANDARD (12/15/2021 11:19 AM EDT) Chol/HDLC Ratio 2.4 <5.0 (calc) [facility] Cholesterol, Total 174 <200 mg/dL [facility] HDL Cholesterol 73 > OR = 40 mg/dL [facility] LDL Cholesterol 85 mg/dL (calc) [facility] Comment: Reference range: <100 Desirable range <100 mg/dL for primary prevention; <70 mg/dL for patients with CHD or diabetic patients with > or = 2 CHD risk factors. LDL-C is now calculated using the Robert calculation, which is a validated novel method providing better accuracy than the Friedewald equation in the estimation of LDL-C. Marcos SS et al. JOSHUA. 2013;310(19): 9315-9693 (http://education.Billibox/faq/IFQ999) Non-HDL Cholesterol 101 <130 mg/dL (calc) [facility] Comment: For patients with diabetes plus 1 major ASCVD risk factor, treating to a non-HDL-C goal of <100 mg/dL (LDL-C of <70 mg/dL) is considered a therapeutic option. Triglycerides 69 <150 mg/dL [facility] 12/15/2021 11:1 9 AM EDT us Jennifer Roca NP LAB BLOOD ORDERABLES Final Res ult [facility] [address] from Last 3 Months or Most Recently Relevant to Health Maintenance Insurance * Guarantor: Justice Conn Account Type Relation to Patient Date of Phone Billing Address Personal/Family Self [address] [place] [address] [facility] STANDARD
== END 2025-05-07 15:40 | disposition home or self-care (01) ==
LOC: HO.HOS 14:58
PROVIDERS: PCP Internal Medicine; Visit Provider Orthopaedic Surgery
DX: M65.832 Other synovitis and tenosynovitis, left forearm (principal)
CPT/HCPCS: 99024